=== PATIENT | male | born 1995 | race Caucasian/White ===

== ENCOUNTER 2020-06-08 14:05 | Inpatient (IN) | payer MEDICAID ==
[~2020-06-08] VITALS: Ht 177.8 cm; Wt 67.5 kg
[2020-06-08] MEDS ORDERED: POLYETHYLENE GLYCOL 17 GM PACKET PO PRN (15:30)
[2020-06-08] MEDS ORDERED: ONDANSETRON ODT 4 MG PO PRN (15:30)
[2020-06-08] MEDS ORDERED: IBUPROFEN 200 MG TABLET PO PRN (15:30)
[2020-06-08] MEDS ORDERED: LORazepam 1MG TABLET PO PRN (15:30)
[2020-06-08] MEDS ORDERED: BISACODYL 10 MG SUPP PR PRN (15:30)
[2020-06-08] MEDS ORDERED: DOCUSATE 100 MG CAPSULE PO PRN (15:30)
[2020-06-08 15:39] VITALS: BP 144/87
[2020-06-08 16:19] LABS: BASOPHILS # (AUTO) 0.05 x10^3/uL (0-0.1); BASOPHILS % (AUTO) 1 % (0-1); EOSINOPHILS # (AUTO) 0.11 x10^3/uL (0-0.4); EOSINOPHILS % (AUTO) 1 % (1-7); LYMPHOCYTES # (AUTO) 1.13 x10^3/uL (1-3.4); LYMPHOCYTES % (AUTO) 13 % (22-44); MD NO; MEAN CORPUSCULAR HEMOGLOBIN 31.6 pg (27.5-34.5); MEAN CORPUSCULAR VOLUME 92.8 fL (81-97); MEAN PLATELET VOLUME 8.2 fL (7.4-10.4); MONOCYTES % (AUTO) 11 % (2-9); NEUTROPHILS # (AUTO) 6.29 x10^3/uL (1.8-6.8); NEUTROPHILS % (AUTO) 74 % (42-75); PLATELET COUNT 190 x10^3/uL (130-400); RED BLOOD COUNT 5.24 x10^6/uL (4.38-5.82); RED CELL DISTRIBUTION WIDTH 12.6 % (9.4-14.8)
[2020-06-08 16:31] LABS: ALANINE AMINOTRANSFERASE 53 U/L (12-78); ALBUMIN 4.3 g/dL (3.4-5.0); ANION GAP 9 mmol/L (5-15); CALCIUM 9.7 mg/dL (8.5-10.1); CHLORIDE 103 mmol/L (98-107); CREATININE 0.93 mg/dL (0.7-1.3)
[2020-06-08 16:34] LABS: ALKALINE PHOSPHATASE 84 U/L (45-117); BILIRUBIN,TOTAL 4.2 mg/dL (0.2-1.0); TOTAL PROTEIN 8.6 g/dL (6.4-8.2)
[2020-06-08 19:11] VITALS: BP 130/85
[2020-06-08] MEDS: LORazepam 1MG TABLET PO SCH (20:15)
[2020-06-08] MEDS: ACAMPROSATE 333 MG TABLET.DR PO SCH (20:15)
[2020-06-09] MEDS: LORazepam 1MG TABLET PO SCH ×4 (03:41→20:05)
[2020-06-09 07:34] VITALS: BP 120/73
[2020-06-09] MEDS: FOLIC ACID 1 MG TABLET PO SCH (08:22)
[2020-06-09] MEDS: THIAMINE 100MG TABLET PO SCH (08:22)
[2020-06-09] MEDS: ACAMPROSATE 333 MG TABLET.DR PO SCH ×3 (08:22→20:05)
[2020-06-09] MEDS: NICOTINE 14MG/24 HR PATCH.TD24 TD SCH (08:23)
[2020-06-09 08:30] LABS: CHOL/HDL RATIO 2.9; FREE T4 (FREE THYROXINE) 1.17 ng/dL (0.76-1.46); LDL/HDL RATIO 1.6 (0.5-3.0)
[2020-06-09] MEDS: ESCITALOPRAM 10MG TABLET PO SCH (14:43)
[2020-06-09] MEDS ORDERED: HYDROXYZINE PAMOATE 25MG CAP PO PRN (15:00)
[2020-06-09 16:38] LABS: MICROSCOPIC INDICATED
[2020-06-09 19:40] VITALS: BP 127/85
[2020-06-09] MEDS: TRAZODONE 50MG TABLET PO PRN (20:06)
[2020-06-10] MEDS: LORazepam 1MG TABLET PO SCH ×4 (03:27→21:43)
[2020-06-10 07:00] VITALS: BP 125/77
[2020-06-10] MEDS: THIAMINE 100MG TABLET PO SCH (08:49)
[2020-06-10] MEDS: FOLIC ACID 1 MG TABLET PO SCH (08:49)
[2020-06-10] MEDS: ACAMPROSATE 333 MG TABLET.DR PO SCH ×3 (08:50→20:20)
[2020-06-10] MEDS: ESCITALOPRAM 10MG TABLET PO SCH (08:50)
[2020-06-10] MEDS: NICOTINE 14MG/24 HR PATCH.TD24 TD SCH (09:00)
[2020-06-10] MEDS ORDERED: ESCI10TA PO (14:55)
[2020-06-10] MEDS ORDERED: TRAZ50TA66 PO (14:55)
[2020-06-10] MEDS ORDERED: HYDR25CA94 PO (14:55)
[2020-06-10] MEDS ORDERED: NICO-486 TD (14:55)
[2020-06-10 19:55] VITALS: BP 136/85
[2020-06-10] MEDS: TRAZODONE 50MG TABLET PO PRN (20:20)
[2020-06-11] MEDS: LORazepam 1MG TABLET PO SCH ×2 (03:16→09:56)
[2020-06-11 07:00] VITALS: BP 125/82
[2020-06-11] MEDS ORDERED: ACAM333T7 PO (07:54)
[2020-06-11] MEDS: ACAMPROSATE 333 MG TABLET.DR PO SCH (09:00)
[2020-06-11] MEDS: NICOTINE 14MG/24 HR PATCH.TD24 TD SCH (09:56)
[2020-06-11] MEDS: ESCITALOPRAM 10MG TABLET PO SCH (09:56)
[2020-06-11] MEDS: THIAMINE 100MG TABLET PO SCH (09:56)
[2020-06-11] MEDS: FOLIC ACID 1 MG TABLET PO SCH (09:56)
== END 2020-06-11 10:25 | disposition home or self-care (01) | DRG 751 ==
LOC: 3E 14:31
PROVIDERS: ADMIT Psychiatry & Neurology Psychosomatic Medicine; ATTEND Psychiatry & Neurology Psychosomatic Medicine
DX: F33.2 Major depressive disorder, recurrent severe without psychotic features (principal); F10.20 Alcohol dependence, uncomplicated; F12.90 Cannabis use, unspecified, uncomplicated; F17.210 Nicotine dependence, cigarettes, uncomplicated; R45.851 Suicidal ideations; Z79.899 Other long term (current) drug therapy; Z81.8 Family history of other mental and behavioral disorders
CPT/HCPCS: 36415; 80053; 80061; 81001; 82140; 84439; 84443; 85025; 87086; 93005